=== PATIENT | female | born 1975 | race Caucasian/White ===

== ENCOUNTER 2017-02-12 11:42 | Outpatient (CLI) | payer OTHER ==
[2014-03-28 02:39] VITALS: BP 136/86
== END 2017-02-12 11:43 ==
LOC: LAB 11:42
PROVIDERS: ATTEND Family Medicine
DX: E11.9 Type 2 diabetes mellitus without complications (principal)
CPT/HCPCS: 36415; 83036

== ENCOUNTER 2019-06-06 16:55 | Emergency (ER) | payer OTHER ==
--- NOTE | 2019-06-06 17:07 | ED Physician Documentation ---
Neuro Symptoms - HISTORIAN Historian: patient - HPI Stated Complaint: right arm numbness/itching Chief Complaint: Neurological Symptoms Additional Information: Patient presents to ED with right arm numbness/itching and thick tongue feeling. Patient was concerned about a stroke. Patient reports the symptoms began 10 minutes [employer]. Upon arrival patient states her right hand is feeling better. Patient states she had shingles last month on her right posterior shoulder extending down her right arm. 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 Patient has a history of HTN, Migraines, DM2 (on Metformin). Onset: minutes (10) Timing: sudden onset Last known Well Date: 06/06/19 Last Known Well Time: 16:50 Last known Well Code/Unknown Code: Known Severity: mild - CHARACTERS OF DEFICIT New Weakness: none Altered Sensation: RUE Vision Problems: Yes (left visual problems about a month ago) Impaired Speech/ Swallowing: No Decreased Ability: none, other (patient walked in without difficulty) Cognition is Usually: alert, oriented x3 Gait is Usually: walks w/o assistance Associated Symptoms: none - ROS MENTAL STATUS: none. denies: trouble swallowing CVS/Resp Upper Extremity Problem: denies: chest pain, shortness of breath GI/ DYSPNEA: none. denies: vomiting, nausea MS/SKIN/LYMPH: none Neuro/Psych: denies: headache - PAST HX Past History: diabetes Type 2 Other History: hypertension Surgeries/Procedures: none Allergies/Adverse Reactions: Allergies Allergy/AdvReac Type Severity Reaction Status Date / Time diphenhydramine HCl Allergy Severe Rash Verified 06/06/19 17:06 [From Benadryl] lidocaine Allergy Intermediate Rash Verified 06/06/19 17:06 bong Allergy Unknown Uncoded 06/06/19 17:06 Home Medications: Ambulatory Orders Medication Instructions Recorded Levocetirizine Dihydrochloride 5 mg PO DAILY u2 02/12/17 [Xyzal] - FAMILY HX Family History: none - SOCIAL HX Smoking History: non-smoker Alcohol Use: none Drug Use: none - VITAL SIGNS Vital Signs: Vital Signs Temp Pulse Resp BP Pulse Ox 98.4 F 92 H 20 116/66 94 06/06/19 17:01 06/06/19 17:45 06/06/19 17:45 06/06/19 17:45 06/06/19 17:45 - REVIEWED ASSESSMENTS Nursing Assessment Reviewed: Yes Vitals Reviewed: Yes Progress - Progress Progress: 183 Patient states her symptoms have improved. She states she just has a little itching in her right fingers now. ED Results Lab/Radiology - Lab Results Lab Results: Lab Results 06/06/19 06/06/19 17:00 17:00 WBC 11.30 K/ul K/ul (4.00-12.00) RBC 4.88 M/ul M/ul (3.90-5.20) Hgb 15.7 g/dL g/dL (11.5-16.0) Hct 46.2 % % (34.5-46.5) MCV 95.0 fl fl (80.0-100.0) MCH 32.3 pg pg (28.0-34.0) MCHC 34.1 g/dL g/dL (30.0-36.0) RDW 12.0 % % (11.3-14.3) Plt Count 406 K/mm3 H K/mm3 (130-400) Neut % (Auto) 41.9 % % (39.0-79.0) Lymph % (Auto) 46.8 % % (16.0-50.0) [place] % (Auto) 8.7 % % (0.0-11.0) Eos % (Auto) 1.6 % % (0.0-6.8) Baso % (Auto) 1.0 % % (0.0-1.5) Neut # (Auto) 4.8 # k/uL # k/uL (1.4-7.7) Lymph # (Auto) 5.3 # k/uL H # k/uL (0.6-4.0) [place] # (Auto) 1.0 # k/uL H # k/uL (0.0-0.9) Eos # (Auto) 0.2 # k/uL # k/uL (0.0-0.6) Baso # (Auto) 0.1 # k/uL # k/uL (0.0-0.5) Sodium 139 mmol/L mmol/L (137-145) Potassium 4.2 mmol/L mmol/L (3.5-5.1) Chloride 100 mmol/L mmol/L (98-107) Carbon Dioxide 26 mmol/L mmol/L (22-30) Anion Gap 17.2 BUN 13 mg/dL mg/dL (7-17) Creatinine 0.66 mg/dL mg/dL (0.52-1.04) Estimated Creat Clear 229 Est GFR ( Amer) > 60 (60 - ) Est GFR (Non-Af Amer) > 60 (60 - ) Glucose 167 mg/dL H mg/dL (74-106) Calcium 9.8 mg/dL mg/dL (8.4-10.2) Total Bilirubin 0.7 mg/dL mg/dL (0.2-1.3) AST 46 U/L U/L (15-46) ALT 28 U/L U/L (13-69) Alkaline Phosphatase 61 U/L U/L (38-126) Total Protein 8.6 g/dL H g/dL (6.3-8.2) Albumin 4.5 g/dL g/dL (3.5-5.0) - Radiology Radiology Impressions: Report Submission Date: Jun 06, 2019 5:48:54 PM CDT Patient Study Name: PATSY PARISH Date: Jun 06, 2019 5:09:27 PM CDT Modality Type: CT\SR Gender: F Description: CT BRAIN W/O CONTRAST : 75 Institution: [facility] Physician: TRINITY COX HISTORY: 44-year-old female with right arm numbness and itching. COMPARISON: None available. TECHNIQUE: Noncontrast axial CT images of the head were performed. Sagittal and coronal reformatted images were obtained. FINDINGS: No intracranial hemorrhage, mass, midline shift, hydrocephalus, or evidence of acute large vessel infarct. The mastoid air cells, middle ear spa taran, and paranasal sinuses are clear. No cranial fracture or scalp edema. IMPRESSION: No acute intracranial process. Electronically signed on Jun 06, 2019 5:48:54 PM CDT by: Madi Osborn - Orders Orders: ED Orders Category Date Time Status CT BRAIN W/O CONTRAST Stat Exams 06/06/19 Completed CBC/PLATELET/DIFF Routine Lab 06/06/19 17:00 Completed CMP [CMP] Routine Lab 06/06/19 17:00 Completed UA W/MICRO IF INDICATED Routine Lab 06/06/19 17:01 Ordered Aspirin [Jessica] Med 06/06/19 17:54 Discontinued 162 mg PO NOW ONE Aspirin [Jessica] Med 06/06/19 17:55 Discontinued 162 mg PO NOW ONE Neuro Symptoms Physical Exam - Physical Exam General Appearance: no acute distress, alert HEENT: EOM's intact, PERRL Neuro/Psych: alert, oriented x3, no evidence of acute CVA Cranial Nerves: nml as tested Cerebellar: nml as tested Pheripheral Exam: motor nml, sensation nml Neck: normal inspection, supple Respiratory: no resp distress, chest non-tender, breath sounds normal CVS: reg rate & rhythm Abdomen: non-tender Skin: color nml, no rash Extremities: non-tender, no evidence of injury, no edema Discharge Clincal Impression: Tingling of right upper extremity Referrals: Ashley Velasco MD [Primary Care Provider] - 2 Days Additional Instructions: 1. Start Aspirin 81 mg daily. 2. Continue home medications as previously prescribed 3. Follow up with PCP within 4 days. Discuss referral to neurologist for further evaluation to rule out multiple sclerosis 4. Return to the ER for new or worsening symptoms. Condition: Stable Disposition: 01 HOME, SELF-CARE Decision to Admit: NO Date of Decison to Admit: 06/06/19 Decision Time: 18:36
[2019-06-06 17:19] LABS: NEUTROPHILS # 4.8 # k/uL (1.4-7.7); eGFR (Non-African) > 60
[2019-06-06] MEDS ORDERED: ASPIRIN 81 MG CHEW TAB PO ONE ×2 (17:54→17:55)
--- NOTE | 2019-06-06 18:05 | Diagnostic Imaging Report ---
TRINITY COX [facility] [id number] [facility] [address] [place], [place]. [address] Report Submission Date: Jun 06, 2019 5:48:54 PM CDT Patient Study Name: PATSY PARISH Date: Jun 06, 2019 5:09:27 PM CDT Modality Type: CT\SR Gender: F Description: CT BRAIN W/O CONTRAST : 75 Institution: [facility] Physician: TRINITY COX HISTORY: 44-year-old female with right arm numbness and itching. COMPARISON: None available. TECHNIQUE: Noncontrast axial CT images of the head were performed. Sagittal and coronal reformatted images were obtained. FINDINGS: No intracranial hemorrhage, mass, midline shift, hydrocephalus, or evidence of acute large vessel infarct. The mastoid air cells, middle ear spaces, and paranasal sinuses are clear. No cranial fracture or scalp edema. IMPRESSION: No acute intracranial process. Electronically signed on Jun 06, 2019 5:48:54 PM CDT by: Madi WALTERS
[2019-06-06 18:45] VITALS: BP 123/69
== END 2019-06-06 18:45 | disposition home or self-care (01) ==
LOC: ED 16:55
DX: R20.2 Paresthesia of skin (principal)
CPT/HCPCS: 70450; 80053; 85025; 99283; 99284; S1016

== ENCOUNTER 2019-06-07 10:40 | Emergency (ER) | payer OTHER ==
[2019-06-07 11:06] LABS: APPEARANCE,URINE CLEAR (CLEAR); CANNABINOIDS NON NEGATIVE ng/mL (< 50); COLOR,URINE YELLOW (YELLOW); METHYLENEDIOXYMETHAMPHETAMINE NEGATIVE ng/mL (<500); OCCULT BLOOD,URINE TRACE-INTACT (NEGATIVE); PH URINE 5.5 (5.0 - 8.0); UROBILINOGEN URINE 0.2 Eu (0.2-1.0)
[2019-06-07 11:07] LABS: BASOPHILS % 0.6 % (0.0-1.5)
[2019-06-07] MEDS: 0.9 % SODIUM CHLORIDE 1,000 ML IV ONE ×2 (11:14)
[2019-06-07 11:18] LABS: eGFR (Non-African) > 60
--- NOTE | 2019-06-07 12:33 | ED Physician Documentation ---
Altered Mental Status - HISTORIAN Historian: patient, paramedics - [facility] Chief Complaint: Altered Mental Status Additional Information: pt to ed via ems w/hx mom found wing sitting on floor at home partially unresponsive. on arrival pt still partially unresponsive . will open eyes make contact but will no speak. she is moving all four but allows hand to fall into face. she did turn head so i could examine ears and eyes ronald no systagmusplantar reflex downgoing. pt here yesterday w/rt arm numbness tingling. recent hs of shingles rt scapular area extending to rt arm w/post herpetic neurology rt arm. ct and lab yest wnl and pt recovered sent home w/dx rt arm tingling Onset: days ago (2appears progressive) Duration: gradual onset Last known Well Date: 06/04/19 Last Known Well Time: 02:10 Last known Well Code/Unknown Code: Unknown Character of Altered Mental Status: disoriented, decreased responsiveness Cognition is Usually: alert, oriented x3 Gait is Usually: walks w/o assistance - ROS EYES/ENT: denies: problems with vision CVS/RESP: none GI/: none NEURO/PSYCH: headache (occular migraine) - PAST HX Past History: diabetes Type 2, head trauma, depression Other History: hypertension Allergies/Adverse Reactions: Allergies Allergy/AdvReac Type Severity Reaction Status Date / Time diphenhydramine HCl Allergy Severe Rash Verified 06/07/19 11:05 [From Benadryl] lidocaine Allergy Intermediate Rash Verified 06/07/19 11:05 bong Allergy Unknown Uncoded 06/07/19 11:05 Home Medications: Ambulatory Orders Medication Instructions Recorded Levocetirizine Dihydrochloride 5 mg PO DAILY u2 02/12/17 [Xyzal] - SOCIAL HX Smoking History: non-smoker Alcohol Use: none Drug Use: none - FAMILY HX Family History: no significant history - VITAL SIGNS Vital Signs: Vital Signs Temp Pulse Resp BP Pulse Ox 123/69 06/06/19 18:43 - REVIEWED ASSESSMENTS Nursing Assessment Reviewed: Yes Vitals Reviewed: Yes ED Results Lab/Radiology - Lab Results Lab Results: Lab Results 06/07/19 06/07/19 06/07/19 11:02 10:58 10:58 WBC 11.50 K/ul K/ul (4.00-12.00) RBC 4.57 M/ul M/ul (3.90-5.20) Hgb 14.6 g/dL g/dL (11.5-16.0) Hct 42.9 % % (34.5-46.5) MCV 94.0 fl fl (80.0-100.0) MCH 32.0 pg pg (28.0-34.0) MCHC 34.1 g/dL g/dL (30.0-36.0) RDW 11.9 % % (11.3-14.3) Plt Count 328 K/mm3 K/mm3 (130-400) Neut % (Auto) 69.6 % % (39.0-79.0) Lymph % (Auto) 22.0 % % (16.0-50.0) [place] % (Auto) 7.1 % % (0.0-11.0) Eos % (Auto) 0.7 % % (0.0-6.8) Baso % (Auto) 0.6 % % (0.0-1.5) Neut # (Auto) 8.0 # k/uL H # k/uL (1.4-7.7) Lymph # (Auto) 2.5 # k/uL # k/uL (0.6-4.0) [place] # (Auto) 0.8 # k/uL # k/uL (0.0-0.9) Eos # (Auto) 0.1 # k/uL # k/uL (0.0-0.6) Baso # (Auto) 0.1 # k/uL # k/uL (0.0-0.5) Urine Color Yellow (YELLOW) Urine Appearance Clear (CLEAR) Urine pH 5.5 (5.0 - 8.0) Ur Specific [place] 1.025 (1.010-1.030) Urine Protein Negative mg/dL mg/dL (NEGATIVE) Urine Ketones 1+ mg/dL H mg/dL (NEGATIVE) Urine Occult Blood Trace-intact H (NEGATIVE) Urine Nitrite Negative (NEGATIVE) Urine Bilirubin Negative (NEGATIVE) Urine Urobilinogen 0.2 Eu Eu (0.2-1.0) Ur Leukocyte Esterase Negative (NEGATIVE) Urine Glucose 2+ mg/dL H mg/dL (NEGATIVE) Opiates Screen Negative ng/mL ng/mL (<300) Oxycodone Screen Negative ng/mL ng/mL (<100) Methadone Screen Negative ng/mL ng/mL (<200) Ur Barbiturates Screen Negative ng.mL ng.mL (<200) Tricyclic Antidepress Negative ng/mL ng/mL (<300) Phencyclidine Screen Negative ng/mL ng/mL (< 25) Amphetamines Screen Negative ng/mL ng/mL (<500) U Methamphetamines Scrn Negative ng/mL ng/mL (<500) MDMA Negative ng/mL ng/mL (<500) Benzodiazepines Screen Negative ng/mL ng/mL (<150) Urine Cocaine Screen Negative ng/mL ng/mL (<150) U Cannabinoids Screen Non negative ng/mL H ng/mL (< 50) - Orders Orders: ED Orders Category Date Time Status CBC/PLATELET/DIFF Routine Lab 06/07/19 11:02 Completed CMP Routine Lab 06/07/19 11:02 Received UA MACRO DIP ONLY Routine Lab 06/07/19 10:58 Completed URINE HCG [URINE HCG] Stat Lab 06/07/19 Uncollected Urine drug screen [DRUG SCREEN URINE MEDICAL ONLY] Lab 06/07/19 10:58 Completed Routine 0.9 % Sodium Chloride [Normal Saline] 1,000 ml Med 06/07/19 11:05 Discontinued IV .STK-MED 0.9 % Sodium Chloride [Normal Saline] 1,000 ml Med 06/07/19 11:07 Active IV Q1H Altered Mental Status Physical - Physical Exam General Appearance: moderate distress Neuro/Psych: depression (as w/cc) no evidence of acute CVA. No: eyes open (will open on command), abnml response to pain Peripheral Exam: motor nml (unsure but moved from amb cart to bed w/assist) HEENT: [place], EOM's intact, no apparent trauma Neck: normal inspection Respiratory: no resp distress, breath sounds normal CVS: reg rate & rhythm, heart sounds normal, equal pulses Abdomen: non-tender Skin: warm/dry, normal color. No: cyanosis, diaphoresis, jaundice Extremities: non-tender, no evidence of injury (rt lat lower leg w. evid mild trauma) Discharge Clincal Impression: decreased responsiveness udo, hx dec weakness rt arm udo, hx shingles rt shoulder w/ post herpetic Referrals: Ashley Velasco MD [Primary Care Provider] - 2 Days Comments: hx lprev records from mom and from visit here yesterday. Condition: Fair Disposition: 02 XFER SHT-TRM HOSP Decision to Admit: [id number] Decision Time: 12:43
[2019-06-07 13:28] VITALS: BP 117/86
== END 2019-06-07 13:10 | disposition short-term general hospital (02) ==
LOC: ED 10:40
DX: R46.4 Slowness and poor responsiveness (principal)
CPT/HCPCS: 80053; 80320; 80377; 81002; 81025; 85025; 96360; 99282; 99284; J7030; G0480; G0481; S1016